=== PATIENT | male | born 1955 | race Asian ===

== ENCOUNTER 2016-05-08 18:35 | Emergency (ER) | payer BC, OTHER ==
[~2016-05-08] VITALS: Ht 177.8 cm; Wt 94.3 kg
[~2016-05-08 18:35] MED LIST: LISI10TA5 PO
[2016-05-08 19:05] VITALS: BP 143/68
== END 2016-05-08 20:18 | disposition home or self-care (01) ==
LOC: ER 18:38
DX: K04.7 Periapical abscess without sinus (principal); I10 Essential (primary) hypertension; I25.10 Atherosclerotic heart disease of native coronary artery without angina pectoris
CPT/HCPCS: 99283; A4606; Z7610

== ENCOUNTER 2016-09-15 14:21 | Inpatient (IN) | payer BC, OTHER ==
[~2016-09-15] VITALS: Ht 172.7 cm; Wt 120.2 kg
[2016-09-15] MEDS ORDERED: ASPIRIN 81 MG TAB.CHEW ONE (14:40)
[2016-09-15] MEDS ORDERED: METOPROLOL TARTRATE 50 MG TABLET ONE (14:40)
[2016-09-15] MEDS ORDERED: NITROGLYCERIN PACKET 1 GM PACKET ONE (14:41)
[2016-09-15 15:00] LABS: BASOPHILS % (AUTO) 0.4 % (0.0-2.0); EOSINOPHILS # (AUTO) 0.4 /CMM (0.0-0.7); EOSINOPHILS % (AUTO) 4.5 % (0.0-6.0); HEMATOCRIT 50 % (39-51); HEMOGLOBIN 16.3 g/dL (13.5-17.5); LYMPHOCYTES # (AUTO) 1.7 /CMM (0.8-4.8); LYMPHOCYTES % (AUTO) 20.5 % (20.0-44.0); MEAN CORPUSCULAR HEMOGLOBIN 29 PG (26.0-33.0); MEAN CORPUSCULAR HGB CONC 33 g/dl (31.0-36.0); MEAN CORPUSCULAR VOLUME 89 fL (80-96); MONOCYTES # (AUTO) 0.6 /CMM (0.1-1.30); MONOCYTES % (AUTO) 6.9 % (2.0-12.0); NEUTROPHILS # (AUTO) 5.8 /CMM (1.8-8.9); NEUTROPHILS % (AUTO) 67.7 % (43.0-81.0); PLATELET COUNT (AUTO) 256 /CMM (150-450); RDW COEFFICIENT OF VARIATION 14.5 (11.5-15.0); RED BLOOD CELL COUNT(AUTO) 5.65 MIL/uL (4.5-6.0); WHITE BLOOD COUNT (AUTO) 8.5 K/uL (4.3-11.0)
[2016-09-15] MEDS ORDERED: METOPROLOL TARTRATE 25 MG TABLET PO ONE (15:00)
[2016-09-15] MEDS ORDERED: NITROGLYCERIN PACKET 1 GM PACKET TD ONE ×2 (15:00→15:30)
[2016-09-15] MEDS ORDERED: ASPIRIN 81 MG TAB.CHEW PO ONE (15:00)
[2016-09-15 15:10] LABS: CALCIUM, SERUM 8.2 mg/dL (8.5-10.1); CREATININE 1.2 mg/dL (0.6-1.3); POTASSIUM 3.8 mmol/L (3.5-5.1)
[2016-09-15] MEDS ORDERED: LOSA50TA21 PO (15:11)
[2016-09-15 15:13] LABS: INR 0.96 (0.87-1.13)
[2016-09-15 15:15] LABS: ALBUMIN 3.2 g/dL (3.4-5.0); BILIRUBIN,DIRECT 0.2 mg/dL (0.0-0.2); TOTAL PROTEIN, SERUM 6.6 g/dL (6.4-8.2)
[2016-09-15 15:17] LABS: TROPONIN I 0.061 ng/mL (0.00-0.056)
[2016-09-15] MEDS ORDERED: ASPIRIN 325 MG TABLET PO ONE (15:30)
[2016-09-15] MEDS ORDERED: ASPIRIN 325 MG TABLET ONE (15:34)
[2016-09-15] MEDS ORDERED: CLONIDINE HCL 0.1 MG TABLET PO PRN (18:30)
[2016-09-15] MEDS ORDERED: ONDANSETRON HCL/PF 4 MG/2 ML VIAL IVP PRN (19:30)
[2016-09-15] MEDS ORDERED: MORPHINE SULFATE INJ 2 MG/ML DISP.SYRIN IV PRN (19:30)
[2016-09-15] MEDS ORDERED: ACETAMINOPHEN 325 MG TABLET PO PRN (19:30)
[2016-09-15 20:00] VITALS: BP 166/98
[2016-09-15] MEDS: METOPROLOL TARTRATE 50 MG TABLET PO SCH (21:00)
[2016-09-15] MEDS ORDERED: ENOXAPARIN SODIUM 40 MG/0.4 ML DISP.SYRIN SQ SCH (21:00)
[2016-09-15] MEDS ORDERED: IV SET PRIMARY PUMP SET 1 EA INFUS.SET MC ONE (22:45)
[2016-09-15] MEDS: NITROGLYCERIN 30 GM TUBE TP SCH (23:55)
[2016-09-16] VITALS: BP 155/88
[2016-09-16] MEDS ORDERED: IV NS 0.9% 1,000 ML IV PRN
[2016-09-16 00:25] VITALS: BP 155/88
[2016-09-16 04:00] VITALS: BP 143/76
[2016-09-16] MEDS: NITROGLYCERIN 30 GM TUBE TP SCH ×3 (06:18→09:00)
[2016-09-16] MEDS ORDERED: ATORVASTATIN 40 MG TABLET PO SCH (06:30)
[2016-09-16 07:19] VITALS: BP 146/69
[2016-09-16] MEDS ORDERED: PANTOPRAZOLE 40 MG TABLET.DR PO SCH (07:30)
[2016-09-16 07:40] LABS: BASOPHILS % (AUTO) 0.5 % (0.0-2.0); EOSINOPHILS # (AUTO) 0.4 /CMM (0.0-0.7); EOSINOPHILS % (AUTO) 3.4 % (0.0-6.0); HEMATOCRIT 43 % (39-51); HEMOGLOBIN 14.6 g/dL (13.5-17.5); LYMPHOCYTES # (AUTO) 1.6 /CMM (0.8-4.8); LYMPHOCYTES % (AUTO) 15.2 % (20.0-44.0); MEAN CORPUSCULAR HEMOGLOBIN 30 PG (26.0-33.0); MEAN CORPUSCULAR HGB CONC 34 g/dl (31.0-36.0); MEAN CORPUSCULAR VOLUME 89 fL (80-96); MONOCYTES # (AUTO) 0.6 /CMM (0.1-1.30); MONOCYTES % (AUTO) 5.3 % (2.0-12.0); NEUTROPHILS % (AUTO) 75.6 % (43.0-81.0); PLATELET COUNT (AUTO) 231 /CMM (150-450); RDW COEFFICIENT OF VARIATION 15.2 (11.5-15.0); WHITE BLOOD COUNT (AUTO) 10.6 K/uL (4.3-11.0)
[2016-09-16 08:00] VITALS: BP 146/69
[2016-09-16 08:02] LABS: CALCIUM, SERUM 8.2 mg/dL (8.5-10.1); POTASSIUM 4.2 mmol/L (3.5-5.1)
[2016-09-16] MEDS: METOPROLOL TARTRATE 50 MG TABLET PO SCH (08:57)
[2016-09-16 09:00] VITALS: BP 146/69
[2016-09-16] MEDS ORDERED: ASPIRIN EC 81 MG TABLET.DR PO SCH (09:00)
[2016-09-16] MEDS ORDERED: ENOXAPARIN SODIUM 100 MG/ML DISP.SYRIN SQ SCH (09:00)
[2016-09-16] MEDS ORDERED: LOSARTAN POTASSIUM 50 MG TABLET PO SCH (09:00)
== END 2016-09-16 13:00 | disposition short-term general hospital (02) | DRG 281 ==
LOC: ER 14:22 → TELE 16:38
PROVIDERS: ADMIT Legal Medicine; ATTEND Legal Medicine
DX: I21.4 Non-ST elevation (NSTEMI) myocardial infarction (principal); Z68.41 Body mass index [BMI] 40.0-44.9, adult; G47.33 Obstructive sleep apnea (adult) (pediatric); I10 Essential (primary) hypertension; I25.10 Atherosclerotic heart disease of native coronary artery without angina pectoris; Z79.899 Other long term (current) drug therapy; E66.01 Morbid (severe) obesity due to excess calories
CPT/HCPCS: 36415; 70450-TC; 71010-TC; 80048-TC; 80061-TC; 80076-TC; 84484-TC; 85025-TC; 85730-TC; 87081-TC; 93307-TC; 94799-TC; A4606; J1650; J7030; Z7610

== ENCOUNTER 2017-01-23 11:03 | Outpatient (CLI) | payer BC, OTHER ==
[~2017-01-23 11:03] MED LIST changes: -LISI10TA5 PO; +LOSA50TA21 PO
[2017-01-23 11:34] LABS: BASOPHILS # (AUTO) 0.1 /CMM (0.0-0.2); BASOPHILS % (AUTO) 1.2 % (0.0-2.0); EOSINOPHILS # (AUTO) 0.7 /CMM (0.0-0.7); EOSINOPHILS % (AUTO) 9.1 % (0.0-6.0); HEMATOCRIT 48 % (39-51); HEMOGLOBIN 16.1 g/dL (13.5-17.5); LYMPHOCYTES % (AUTO) 25.7 % (20.0-44.0); MEAN CORPUSCULAR HEMOGLOBIN 30 PG (26.0-33.0); MEAN CORPUSCULAR HGB CONC 34 g/dl (31.0-36.0); MEAN CORPUSCULAR VOLUME 90 fL (80-96); MONOCYTES # (AUTO) 0.4 /CMM (0.1-1.30); MONOCYTES % (AUTO) 5.6 % (2.0-12.0); NEUTROPHILS # (AUTO) 4.6 /CMM (1.8-8.9); NEUTROPHILS % (AUTO) 58.4 % (43.0-81.0); PLATELET COUNT (AUTO) 233 /CMM (150-450); RDW COEFFICIENT OF VARIATION 14.5 (11.5-15.0); RED BLOOD CELL COUNT(AUTO) 5.37 MIL/uL (4.5-6.0); WHITE BLOOD COUNT (AUTO) 7.8 K/uL (4.3-11.0)
[2017-01-23 11:55] LABS: APPEARANCE,URINE CLEAR (CLEAR); BILIRUBIN,URINE NEGATIVE (NEGATIVE); BLOOD, URINE NEGATIVE Ery/uL (NEGATIVE); COLOR,URINE YELLOW (YELLOW); KETONES,URINE NEGATIVE (NEGATIVE); LEUKOCYTE ESTERASE ,URINE NEGATIVE (NEGATIVE); NITRITE, URINE NEGATIVE (NEGATIVE); PROTEIN,URINE NEGATIVE (NEGATIVE); UGLUCOSE NEGATIVE (NEGATIVE); UROBILINOGEN,URINE 0.2 EU/dL (0.2)
[2017-01-23 11:59] LABS: ALBUMIN 3.6 g/dL (3.4-5.0); BILIRUBIN,TOTAL 1.6 mg/dL (0.2-1.0); CALCIUM, SERUM 9.1 mg/dL (8.5-10.1); CREATININE 1.2 mg/dL (0.6-1.3); POTASSIUM 4.4 mmol/L (3.5-5.1); TOTAL PROTEIN, SERUM 7.4 g/dL (6.4-8.2)
[2017-01-23 12:14] LABS: FREE T4 (FREE THYROXINE) 1.2 ng/dL (0.76-1.46); PROSTATE SPECIFIC ANTIGEN SCR 3.08 ng/mL (0.00-4.00); THYROID STIMULATING HORMONE 1.789 uIU/mL (0.358-3.74); URIC ACID 7.3 mg/dL (2.6-7.2)
[2017-01-25 14:12] LABS: *TESTOSTERONE, FREE (DIRECT) 7.9 pg/mL (6.6-18.1)
== END 2017-01-23 23:59 | disposition home or self-care (01) ==
LOC: LAB 11:03
PROVIDERS: ATTEND Legal Medicine
DX: Z00.01 Encounter for general adult medical examination with abnormal findings (principal); I25.10 Atherosclerotic heart disease of native coronary artery without angina pectoris; I10 Essential (primary) hypertension
CPT/HCPCS: 36415; 80053-TC; 80061-TC; 81000-TC; 82306; 84153-TC; 84402-TC; 84439-TC; 84443-TC; 84550-TC; 85025-TC

== ENCOUNTER 2017-07-06 20:22 | Emergency (ER) | payer BC, OTHER ==
[~2017-07-06] VITALS: Ht 172.7 cm; Wt 111.1 kg
--- NOTE | 2017-07-06 20:40 | NUR ---
TO BED 10 AMBULATORY C/O L SHOULDER PAIN AND HIHGBLOOD PRESSURE. PT AAOX4 NO ACUTE DISTRESSS NOTED. PLACE PT ON CARDIAC MONITORING, CONTINUOUS POX. PENDING ER MD HARRELL.
[2017-07-06] MEDS ORDERED: METOPROLOL TARTRATE 25 MG TABLET PO ONE (21:00)
--- NOTE | 2017-07-06 21:01 | NUR ---
PT FAMILY MEMBERS AT BEDSIDE.
[2017-07-06 21:02] LABS: BASOPHILS # (AUTO) 0.2 /CMM (0.0-0.2); EOSINOPHILS % (AUTO) 4.8 % (0.0-6.0); HEMATOCRIT 46 % (39-51); HEMOGLOBIN 15.9 g/dL (13.5-17.5); LYMPHOCYTES # (AUTO) 1.4 /CMM (0.8-4.8); LYMPHOCYTES % (AUTO) 18.4 % (20.0-44.0); MEAN CORPUSCULAR HGB CONC 34 g/dl (31.0-36.0); MEAN CORPUSCULAR VOLUME 88 fL (80-96); MONOCYTES # (AUTO) 0.5 /CMM (0.1-1.30); MONOCYTES % (AUTO) 6.1 % (2.0-12.0); NEUTROPHILS % (AUTO) 67.7 % (43.0-81.0); PLATELET COUNT (AUTO) 238 /CMM (150-450); RDW COEFFICIENT OF VARIATION 13.6 (11.5-15.0); RED BLOOD CELL COUNT(AUTO) 5.24 MIL/uL (4.5-6.0); WHITE BLOOD COUNT (AUTO) 7.5 K/uL (4.3-11.0)
[2017-07-06] MEDS ORDERED: METOPROLOL TARTRATE 50 MG TABLET ONE (21:04)
--- NOTE | 2017-07-06 21:10 | NUR ---
PT MEDICATED ORDERED.
[2017-07-06 21:12] LABS: CALCIUM, SERUM 8.5 mg/dL (8.5-10.1); CARBON DIOXIDE 30 mmol/L (21-32); CHLORIDE 109 mmol/L (98-107); GLUCOSE 105 mg/dL (74-106); SODIUM SERUM 144 mmol/L (136-145); UREA NITROGEN, BLOOD 19 mg/dL (7-18)
[2017-07-06 21:21] LABS: TROPONIN I < 0.017 ng/mL (0.00-0.056)
[2017-07-06] MEDS ORDERED: VALSARTAN 80 MG TABLET PO ONE (22:00)
[2017-07-06] MEDS ORDERED: VALSARTAN 80 MG TABLET ONE (22:21)
[2017-07-06 22:45] VITALS: BP 179/92
--- NOTE | 2017-07-06 22:47 | NUR ---
Patient discharged to home in stable condition. Written and verbal after care instructions given. Patient verbalizes understanding of instruction. IV removed. Catheter intact and site benign. Pressure and 4x4 applied to site. No bleeding noted.
== END 2017-07-06 22:56 | disposition home or self-care (01) ==
LOC: ER 20:23
DX: I10 Essential (primary) hypertension (principal); Z91.14 Patient's other noncompliance with medication regimen; E78.00 Pure hypercholesterolemia, unspecified
CPT/HCPCS: 36415; 71045; 80048; 84484; 85025; 93005; 99285; A4606; Z7610

== ENCOUNTER 2017-11-16 04:45 | Inpatient (IN) | payer BC, OTHER ==
[~2017-11-16] VITALS: Ht 172.7 cm; Wt 106.6 kg
--- NOTE | 2017-11-16 04:58 | NUR ---
PT AMBULATORY TO ER BED 4. BIBWIFE C/O CHEST PRESSURE X 30 MIN. DENIES SOB. HX STENT. PT PLACED IN GOWN AND ON BENCH WORKER. VSS/RESP EVEN UNLABORED/NAD NOTED/SKIN WARM AND DRY/AFEBRILE/DENIES N-V-D/AOX4. AWAITNG MD HARRELL.
[2017-11-16 05:19] LABS: BASOPHILS % (AUTO) 0.7 % (0.0-2.0); EOSINOPHILS % (AUTO) 5.7 % (0.0-6.0); HEMATOCRIT 44 % (39-51); HEMOGLOBIN 14.3 g/dL (13.5-17.5); LYMPHOCYTES # (AUTO) 1.8 /CMM (0.8-4.8); LYMPHOCYTES % (AUTO) 25.1 % (20.0-44.0); MEAN CORPUSCULAR HEMOGLOBIN 30 PG (26.0-33.0); MEAN CORPUSCULAR HGB CONC 32 g/dl (31.0-36.0); MEAN CORPUSCULAR VOLUME 92 fL (80-96); MONOCYTES # (AUTO) 0.6 /CMM (0.1-1.30); MONOCYTES % (AUTO) 7.9 % (2.0-12.0); NEUTROPHILS # (AUTO) 4.3 /CMM (1.8-8.9); NEUTROPHILS % (AUTO) 60.6 % (43.0-81.0); PLATELET COUNT (AUTO) 248 /CMM (150-450); RDW COEFFICIENT OF VARIATION 13.6 (11.5-15.0); RED BLOOD CELL COUNT(AUTO) 4.82 MIL/uL (4.5-6.0)
--- NOTE | 2017-11-16 05:23 | NUR ---
20G IV TO L AC X 1 ATTEMPT USING ASEPTIC TECH, BLOOD HANDED OVER TO THE LAB AT BEDSIDE. IV FLUSHES EASILY WITH NS, NO S/S INFILTRATION NOTED AT THIS TIME.
[2017-11-16] MEDS ORDERED: hydrALAZINE HCL IV 20 MG VIAL ONE (05:25)
[2017-11-16 05:29] LABS: CALCIUM, SERUM 8.5 mg/dL (8.5-10.1); CARBON DIOXIDE 32 mmol/L (21-32); CHLORIDE 106 mmol/L (98-107); CREATININE 1.3 mg/dL (0.6-1.3); GLUCOSE 108 mg/dL (74-106); POTASSIUM 3.9 mmol/L (3.5-5.1); SODIUM SERUM 140 mmol/L (136-145); UREA NITROGEN, BLOOD 22 mg/dL (7-18)
[2017-11-16] MEDS ORDERED: hydrALAZINE HCL IV 20 MG VIAL IV ONE (05:30)
[2017-11-16 05:37] LABS: INR 0.9 (0.87-1.13); TROPONIN I < 0.017 ng/mL (0.00-0.056)
[2017-11-16 05:42] LABS: B-TYPE NATRIURETIC PEPTIDE 49 PG/ML (0-125)
--- NOTE | 2017-11-16 05:46 | NUR ---
XRAY AT BEDSIDE.
[2017-11-16] MEDS ORDERED: ASPIRIN 81 MG TAB.CHEW PO ONE (06:30)
[2017-11-16] MEDS ORDERED: ASPIRIN 81 MG TAB.CHEW ONE (06:32)
--- NOTE | 2017-11-16 07:09 | NUR ---
ENDORSED TO FLEX CROUCH FOR ELIO.
[2017-11-16] MEDS ORDERED: NIFE90TA2 PO (10:09)
[2017-11-16] MEDS ORDERED: ATOR10TA PO (10:09)
[2017-11-16] MEDS ORDERED: HYDR25TA4 PO (10:09)
[2017-11-16] MEDS ORDERED: CLOP75TA15 PO (10:09)
[2017-11-16] MEDS ORDERED: SIMV10TA6 PO (10:09)
[2017-11-16] MEDS ORDERED: METO-356 PO (10:09)
[2017-11-16] MEDS ORDERED: VALS80TA2 PO (10:09)
--- NOTE | 2017-11-16 10:14 | NUR ---
PANEL SCOURING PADS SUPERVISOR PAGED
--- NOTE | 2017-11-16 11:05 | NUR ---
Report given to FLEX hernandez for telma rm [id number]
--- NOTE | 2017-11-16 11:34 | NUR ---
EMPLOYMENT ADJUDICATOR NOTES RECEIVED PATIENT FROM ER VIA FELICITA GRIFFITH CHEST PAIN BY DR. CASTRO. PATIENT STATED THAT HE WOKE UP FEELING CHEST HEAVINESS AND NUMBNESS TO LEFT ARM. AAO X4, ACCOMPANIED BY . ON RA, NAD, NO SOB, RESPIRATION UNLABORED. TELEMETRY READS SR WITH INVERTED T WAVE HR 70, DENIES ANY CHEST PAIN OR DISCOMFORT AT THIS TIME. IVHL TO LEFT AC G 20 FLUSHES WELL, SITE CLEAR. NO SKIN ISSUES. AMBULATORY. BED LOW LOCKED, SR UP X 2, CALL LIGHT WITHIN REACH. POC DISCUSSED WITH PATIENT, VERBALIZED UNDERSTANDING. ALL ADMIT ORDERS CARRIED OUT. ALL NEEDS ANTICIPATED. WILL CONTINUE TO MONITOR.
[2017-11-16] MEDS ORDERED: HYDROCODONE/APAP 5/325MG 1 EACH TABLET PO PRN (12:00)
[2017-11-16] MEDS ORDERED: ZOLPIDEM TARTRATE 5 MG TABLET PO PRN (12:00)
[2017-11-16] MEDS ORDERED: MAG HYDROX/AL HYDROX/SIMETH 30 ML UDC PO PRN (12:00)
[2017-11-16] MEDS ORDERED: Z GUARD REMEDY 2 OZ OINT TP PRN (12:00)
[2017-11-16] MEDS ORDERED: ACETAMINOPHEN 325 MG TABLET PO PRN (12:00)
[2017-11-16] MEDS ORDERED: ONDANSETRON HCL/PF 4 MG/2 ML VIAL IVP PRN (12:00)
[2017-11-16] MEDS ORDERED: MAGNESIUM HYDROXIDE 30 ML UDC PO PRN (12:00)
[2017-11-16 12:19] VITALS: BP 170/94
--- NOTE | 2017-11-16 12:37 | NUR ---
ASSOCIATE ACCOUNT MANAGER NOTES PT SEEN BY DR. CASTRO EARLIER. CARDIAC CONSULT - DR. MILLER - COVERING FOR DR. BISWAS.
[2017-11-16] MEDS: VALSARTAN 80 MG TABLET PO SCH (12:58)
[2017-11-16] MEDS: HYDROCHLOROTHIAZIDE 25 MG TABLET PO SCH (12:58)
[2017-11-16] MEDS: CLOPIDOGREL BISULFATE 75 MG TABLET PO SCH (12:59)
[2017-11-16] MEDS: METOPROLOL SUCCINATE 25 MG TAB.SR.24H PO SCH (12:59)
[2017-11-16] MEDS ORDERED: IV NS 0.9% 1,000 ML BAG IV ONE (13:00)
[2017-11-16] MEDS ORDERED: IV NS 0.9% 1,000 ML IV PRN (14:00)
[2017-11-16 16:00] VITALS: BP 134/86
--- NOTE | 2017-11-16 18:35 | NUR ---
BILLIARD PARLOR MANAGER NOTE PT TROP WENT UP TO 0.157, PT HAS NO CO CHEST PAIN, SR 68-70 ON TELEMONITOR, DR MARIN NOTIFIED. HE ORDERED TO F/U WITH DR MILLER. DR MILLER NOTIFIED ABOUT LABS, HE ORDERED LOVENOX 1MG/KG BID, ASPIRIN 81 MG DAILY, AND CONTINUE PLAVIX 75 MG. WILL PUT ORDERS AND FOLLOW THROUGH AND ENDORSE TO [facility].
--- NOTE | 2017-11-16 19:30 | NUR ---
RN INITIAL SHIFT NOTES RECEIVED REPORT FROM NURSE TORRES. RECEIVED PATIENT IN BED, AWAKE, ALERT AND ORIENTED X4, ABLE TO VERBALIZE NEEDS. PATIENT DENIES ANY CHEST PAIN AT THIS TIME. BREATHING EVEN AND NONLABORED, TOLERATING ROOM AIR WELL, FREE FROM ANY S/S OF RESPIRATORY DISTRESS. ON TELEMETRY MONITORING, SHOWING SINUS RHYTHM WITH INVERTED TWAVE, HR 75BPM AT THIS TIME. LEFT AC #20G PATENT AND INTACT, FLUSHED WITH NS, FREE FROM ANY S/S OF INFILTRATION OR PHLEBITIS, IV FLUIDS INFUSING ORDERED. PLAN OF CARE DISCUSSED WITH THE PATIENT, WHOM VERBALIZES UNDERSTANDING. CALL LIGHT LEFT WITHIN EASY REACH, BED IN LOWEST AND LOCKED POSITION. WILL CONTINUE TO CLOSELY MONITOR
[2017-11-16 20:00] VITALS: BP 149/83
[2017-11-16] MEDS: ENOXAPARIN SODIUM 100 MG/ML DISP.SYRIN SQ SCH (21:18)
[2017-11-16] MEDS ORDERED: SIMVASTATIN 10 MG TABLET PO SCH (22:00)
[2017-11-16] MEDS ORDERED: ATORVASTATIN 10 MG TABLET PO SCH (22:00)
[2017-11-17] VITALS: BP 140/93
[2017-11-17 04:00] VITALS: BP 139/76
[2017-11-17 06:28] LABS: BASOPHILS % (AUTO) 0.6 % (0.0-2.0); EOSINOPHILS % (AUTO) 3.8 % (0.0-6.0); HEMATOCRIT 46 % (39-51); HEMOGLOBIN 15.1 g/dL (13.5-17.5); LYMPHOCYTES # (AUTO) 1.7 /CMM (0.8-4.8); MEAN CORPUSCULAR HEMOGLOBIN 31 PG (26.0-33.0); MEAN CORPUSCULAR HGB CONC 33 g/dl (31.0-36.0); MEAN CORPUSCULAR VOLUME 93 fL (80-96); MONOCYTES # (AUTO) 0.6 /CMM (0.1-1.30); MONOCYTES % (AUTO) 7.7 % (2.0-12.0); NEUTROPHILS # (AUTO) 5.6 /CMM (1.8-8.9); NEUTROPHILS % (AUTO) 67.9 % (43.0-81.0); PLATELET COUNT (AUTO) 246 /CMM (150-450); RDW COEFFICIENT OF VARIATION 13.7 (11.5-15.0); RED BLOOD CELL COUNT(AUTO) 4.95 MIL/uL (4.5-6.0); WHITE BLOOD COUNT (AUTO) 8.3 K/uL (4.3-11.0)
[2017-11-17 06:51] LABS: CALCIUM, SERUM 8.8 mg/dL (8.5-10.1); CREATININE 1.2 mg/dL (0.6-1.3); PHOSPHORUS 3.6 mg/dL (2.5-4.9); POTASSIUM 3.9 mmol/L (3.5-5.1)
[2017-11-17 06:52] LABS: MAGNESIUM 1.9 mg/dL (1.8-2.4)
[2017-11-17 06:55] LABS: TROPONIN I 0.126 ng/mL (0.00-0.056)
--- NOTE | 2017-11-17 07:00 | NUR ---
RN NOTES RECEIVED PT ON BED, A/Ox4, ON RA , RESPIRATION EVEN AND UNLABORED, ON TELE SR - SB, WITH INVERTED T WAVES, L AC IV SITE G 20 CLEAN, DRY AND INTACT, SR UPx3, CALL LIGHT WITHIN EASY REACH, BED LOCKED AND IN LOWEST POSITION , CONTINUE TO MONITOR .
[2017-11-17 08:00] VITALS: BP 125/81
[2017-11-17] MEDS: NIFEdipine XL (30MG) 30 MG TAB PO SCH (08:18)
[2017-11-17] MEDS: VALSARTAN 80 MG TABLET PO SCH (08:19)
[2017-11-17] MEDS: METOPROLOL SUCCINATE 25 MG TAB.SR.24H PO SCH (08:19)
[2017-11-17] MEDS: CLOPIDOGREL BISULFATE 75 MG TABLET PO SCH (08:20)
[2017-11-17] MEDS: HYDROCHLOROTHIAZIDE 25 MG TABLET PO SCH (08:20)
[2017-11-17] MEDS: ENOXAPARIN SODIUM 100 MG/ML DISP.SYRIN SQ SCH ×2 (08:21→22:03)
[2017-11-17] MEDS ORDERED: VALSARTAN 80 MG TABLET PO SCH (09:00)
[2017-11-17] MEDS ORDERED: CLOPIDOGREL BISULFATE 75 MG TABLET PO SCH (09:00)
[2017-11-17] MEDS ORDERED: HYDROCHLOROTHIAZIDE 25 MG TABLET PO SCH (09:00)
[2017-11-17] MEDS ORDERED: ASPIRIN 81 MG TAB.CHEW PO SCH (09:00)
[2017-11-17] MEDS ORDERED: METOPROLOL SUCCINATE 25 MG TAB.SR.24H PO SCH (09:00)
[2017-11-17 12:00] VITALS: BP 142/86
[2017-11-17 16:00] VITALS: BP 117/71
--- NOTE | 2017-11-17 18:10 | NUR ---
RN NOTES VSS STABLE , SUPPORTIVE FAMILY AT THE BEDSIDE, R HAND IV SITE G 20 CLEAN , DRY AND INTACT, WILL ENDOSE TO DEPUTY DIRECTOR OF PUBLIC WORKS NURSE FOR CONTINUITY OF CARE .
--- NOTE | 2017-11-17 18:30 | NUR ---
RN NOTES DR STEVENS NOTIFED REGARDING EKG RESULTS .
[2017-11-17 20:00] VITALS: BP 140/87
--- NOTE | 2017-11-17 20:00 | NUR ---
RN NOTES RECEIVED PT ON BED, A/Ox4, ON NC 2L O2 WITH SPO2 OF 97% , RESPIRATION EVEN AND UNLABORED, ON TELE SR WITH INVERTED T WAVES, L AC IV SITE G 20 CLEAN, DRY AND INTACT, SR UPx3, CALL LIGHT WITHIN EASY REACH, BED LOCKED AND IN LOWEST POSITION , CONTINUE TO MONITOR .
--- NOTE | 2017-11-17 21:00 | NUR ---
RN NOTES CALLED MD STEVENS TO VERIFY LOVENOX 100MG AT [address] STEVENS SAID ADMINISTER EVENING DOSE BUT HOLD THE MORNING DOSE .
[2017-11-17] MEDS ORDERED: ATORVASTATIN 10 MG TABLET PO SCH (22:00)
[2017-11-18] VITALS: BP 131/82
[2017-11-18 04:00] VITALS: BP 129/77
[2017-11-18 06:27] LABS: BASOPHILS % (AUTO) 0.4 % (0.0-2.0); EOSINOPHILS % (AUTO) 3.6 % (0.0-6.0); HEMATOCRIT 50 % (39-51); HEMOGLOBIN 16.5 g/dL (13.5-17.5); LYMPHOCYTES % (AUTO) 21.3 % (20.0-44.0); MEAN CORPUSCULAR HEMOGLOBIN 31 PG (26.0-33.0); MEAN CORPUSCULAR HGB CONC 33 g/dl (31.0-36.0); MEAN CORPUSCULAR VOLUME 92 fL (80-96); MONOCYTES # (AUTO) 0.8 /CMM (0.1-1.30); MONOCYTES % (AUTO) 8.3 % (2.0-12.0); NEUTROPHILS # (AUTO) 6.4 /CMM (1.8-8.9); NEUTROPHILS % (AUTO) 66.4 % (43.0-81.0); PLATELET COUNT (AUTO) 231 /CMM (150-450); RDW COEFFICIENT OF VARIATION 13.6 (11.5-15.0); WHITE BLOOD COUNT (AUTO) 9.6 K/uL (4.3-11.0)
--- NOTE | 2017-11-18 07:00 | NUR ---
RN NOTES RECEIVED PT ON BED, A/Ox4, ON 2L O2 N/C , RESPIRATION EVEN AND UNLABORED , NO SOB NOTED, ON TELE SR, HR IN 60S', WITH INVERTED T WAVES , L AC IV SITE G 20 CLEAN , DRY AND INTACT, SR UP x2, CALL LIGHT WITHIN EASY REACH, BED LOCKED AND IN LOWEST POSITION , CONTINUE TO MONITOR .
[2017-11-18 07:05] LABS: CARBON DIOXIDE 29 mmol/L (21-32); CHLORIDE 103 mmol/L (98-107); CREATININE 1.1 mg/dL (0.6-1.3); GLUCOSE 93 mg/dL (74-106); POTASSIUM 3.8 mmol/L (3.5-5.1); SODIUM SERUM 140 mmol/L (136-145); UREA NITROGEN, BLOOD 23 mg/dL (7-18)
[2017-11-18 08:00] VITALS: BP 132/85
[2017-11-18] MEDS: VALSARTAN 80 MG TABLET PO SCH (08:23)
[2017-11-18] MEDS: NIFEdipine XL (30MG) 30 MG TAB PO SCH (08:24)
[2017-11-18] MEDS: HYDROCHLOROTHIAZIDE 25 MG TABLET PO SCH (08:24)
[2017-11-18] MEDS: ENOXAPARIN SODIUM 100 MG/ML DISP.SYRIN SQ SCH (08:25)
[2017-11-18] MEDS: METOPROLOL SUCCINATE 25 MG TAB.SR.24H PO SCH (08:25)
[2017-11-18] MEDS: CLOPIDOGREL BISULFATE 75 MG TABLET PO SCH (08:25)
[2017-11-18 08:49] LABS: TROPONIN I < 0.017 ng/mL (0.00-0.056)
[2017-11-18] MEDS ORDERED: ASPIRIN 325 MG TABLET PO SCH (09:00)
[2017-11-18 12:00] VITALS: BP 130/84
--- NOTE | 2017-11-18 12:30 | NUR ---
RN NOTES REPORT GIVEN TO MARLEN MCCORD AT [facility], VSS STABLE , PT LEFT THE FLOOR TO MAIN ENTRANCE ACCOMPANIED BY EMT PERSONEAL IN STABLE CONDITION TO [facility] . FAMILY NOTIFED REGARDING PT BEING TRANSFERRED TO [facility] .
== END 2017-11-18 14:49 | disposition home or self-care (01) | DRG 280 ==
LOC: ER 04:56 → TELE1 10:19
PROVIDERS: ADMIT Family Medicine; ATTEND Family Medicine
DX: I21.4 Non-ST elevation (NSTEMI) myocardial infarction (principal); N17.0 Acute kidney failure with tubular necrosis; E44.1 Mild protein-calorie malnutrition; I25.10 Atherosclerotic heart disease of native coronary artery without angina pectoris; E78.5 Hyperlipidemia, unspecified; I10 Essential (primary) hypertension; Z95.5 Presence of coronary angioplasty implant and graft; Z79.899 Other long term (current) drug therapy; I25.2 Old myocardial infarction; Z68.37 Body mass index [BMI] 37.0-37.9, adult; E66.9 Obesity, unspecified; I25.5 Ischemic cardiomyopathy; Z82.49 Family history of ischemic heart disease and other diseases of the circulatory system
CPT/HCPCS: 36415; 71045-TC; 80048-TC; 80061-TC; 83735-TC; 83880; 84100-TC; 84484-TC; 85025-TC; 85730-TC; 87081-TC; 93307-TC; A4606; J0360; J1650; J7030; Z7610

== ENCOUNTER 2018-03-02 09:39 | Outpatient (CLI) | payer BC, OTHER ==
[~2018-03-02 09:39] MED LIST changes: +ATOR10TA PO; +CLOP75TA15 PO; +HYDR25TA4 PO; -LOSA50TA21 PO; +METO-356 PO; +NIFE90TA2 PO; +SIMV10TA6 PO; +VALS80TA2 PO
[2018-03-02 10:46] LABS: CHOLESTEROL 160 mg/dL (<200); HDL CHOLESTEROL 42 mg/dL (40-60); LDL 110 mg/dL (0-99); TRIGLYCERIDES 93 mg/dL (30-150)
== END 2018-03-02 23:59 | disposition home or self-care (01) ==
LOC: LAB 09:39
PROVIDERS: ATTEND Internal Medicine Interventional Cardiology
DX: E78.5 Hyperlipidemia, unspecified (principal); I10 Essential (primary) hypertension
CPT/HCPCS: 36415; 80061-TC

== ENCOUNTER 2018-03-30 18:08 | Emergency (ER) | payer BC, OTHER ==
[~2018-03-30] VITALS: Ht 172.7 cm; Wt 111.1 kg
[2018-03-30] MEDS ORDERED: IV NS 0.9% 1,000 ML BAG IV ONE ×2 (18:30→20:00)
[2018-03-30] MEDS ORDERED: ONDANSETRON HCL/PF 4 MG/2 ML VIAL IVP ONE (18:30)
[2018-03-30] MEDS ORDERED: ONDANSETRON HCL/PF 4 MG/2 ML VIAL ONE (18:40)
[2018-03-30 18:43] LABS: BASOPHILS % (AUTO) 0.4 % (0.0-2.0); EOSINOPHILS % (AUTO) 1.5 % (0.0-6.0); HEMATOCRIT 46 % (39-51); HEMOGLOBIN 15.3 g/dL (13.5-17.5); LYMPHOCYTES # (AUTO) 0.5 /CMM (0.8-4.8); LYMPHOCYTES % (AUTO) 4.4 % (20.0-44.0); MEAN CORPUSCULAR HGB CONC 33 g/dl (31.0-36.0); MEAN CORPUSCULAR VOLUME 92 fL (80-96); MONOCYTES # (AUTO) 0.6 /CMM (0.1-1.30); MONOCYTES % (AUTO) 5.2 % (2.0-12.0); NEUTROPHILS % (AUTO) 88.5 % (43.0-81.0); PLATELET COUNT (AUTO) 255 /CMM (150-450); RED BLOOD CELL COUNT(AUTO) 5.02 MIL/uL (4.5-6.0); WHITE BLOOD COUNT (AUTO) 11.3 K/uL (4.3-11.0)
--- NOTE | 2018-03-30 18:47 | NUR ---
BIB FAMILY C/O N/V WITH SOFT STOOL THIS AM. NEAR SYNCOPAL EPISODE PER . ALERT AND ORIENTED X 4. ON ROOM AIR, BREATHING EVENLY AND UNLABORED. DENIES ANY PAIN AT THIS TIME. HOOKED ON THE MONITOR. KEPT COMFROTABLE. DR. AHUMADA AT BEDSIDE FOR EVAL. IV ACCESS INITIATED. WILL CONTINUE TO MONITOR ACCORDINGLY.
[2018-03-30 18:53] LABS: CALCIUM, SERUM 8.7 mg/dL (8.5-10.1); CREATININE 1.5 mg/dL (0.6-1.3); POTASSIUM 4.2 mmol/L (3.5-5.1)
[2018-03-30 18:58] LABS: ALBUMIN 3.6 g/dL (3.4-5.0); BILIRUBIN,DIRECT 0.2 mg/dL (0.0-0.2); BILIRUBIN,TOTAL 0.9 mg/dL (0.2-1.0); TOTAL PROTEIN, SERUM 7.4 g/dL (6.4-8.2)
[2018-03-30] MEDS ORDERED: CT SWABBABLE VALVE TRANS SET 1 EA INFUS.SET MC ONE (19:23)
[2018-03-30] MEDS ORDERED: IOHEXOL-300 100 ML VIAL IV ONE (19:23)
[2018-03-30] MEDS ORDERED: IV NS 0.9% 250 ML IV ONE (19:23)
--- NOTE | 2018-03-30 19:23 | NUR ---
ENDORSED TO ALEJANDRO HARDY FOR ELIO.
--- NOTE | 2018-03-30 19:26 | NUR ---
ASSUMED CARE OF PT. PT IS OVER IN CT. PT'S SON IS AT THE BEDSIDE.
--- NOTE | 2018-03-30 19:48 | NUR ---
PT RETURNED FROM CT.
--- NOTE | 2018-03-30 20:04 | NUR ---
DR AHUMADA IS AT THE BEDSIDE.
--- NOTE | 2018-03-30 20:58 | NUR ---
IV removed. Catheter intact and site benign. Pressure and 4x4 applied to site. No bleeding noted.Patient discharged to home in stable condition. Written and verbal after care instructions given. Patient verbalizes understanding of instruction AND RX. PT'S IS DRIVING PT HOME. VSS. PT AMBULATED TO THE BATHROOM WITH A STEADY GAIT.
[2018-03-30 21:00] VITALS: BP 106/67
== END 2018-03-30 21:01 | disposition home or self-care (01) ==
LOC: ER 18:11
DX: K80.20 Calculus of gallbladder without cholecystitis without obstruction (principal); R11.2 Nausea with vomiting, unspecified; I10 Essential (primary) hypertension; Z79.899 Other long term (current) drug therapy; Z95.818 Presence of other cardiac implants and grafts
CPT/HCPCS: 36415; 71045; 74177; 80048; 80076; 83690; 85025; 93005; 96361; 96374; 99284; A4606; J2405; J7030 ×2; J7050; Q9967; Z7610

== ENCOUNTER 2018-12-30 09:36 | Emergency (ER) | payer BC, OTHER ==
[~2018-12-30] VITALS: Ht 170.2 cm; Wt 115.7 kg
[~2018-12-30 09:36] MED LIST changes: -METO-356 PO; +METO25TA4 PO; -SIMV10TA6 PO; +SIMV10TA98 PO
--- NOTE | 2018-12-30 09:50 | NUR ---
patient came in to the ER Eric, c/o left foot pain 9/10 ps, denies injury or trauma. On room air, breathing evenly and unlabored, kept comfortable, will continue to monitor accordingly.
[2018-12-30 11:13] VITALS: BP 125/71
--- NOTE | 2018-12-30 11:13 | NUR ---
Patient discharged to home in stable condition. Written and verbal after care instructions given. Patient verbalizes understanding of instruction.
== END 2018-12-30 11:13 | disposition home or self-care (01) ==
LOC: ER 09:47
DX: M77.9 Enthesopathy, unspecified (principal); I10 Essential (primary) hypertension; Z79.899 Other long term (current) drug therapy

== ENCOUNTER 2021-04-30 09:30 | Outpatient (CLI) | payer BC ==
[2021-04-30 11:02] LABS: FREE T4 (FREE THYROXINE) 0.97 ng/dL (0.76-1.46); PROSTATE SPECIFIC ANTIGEN SCR 3.49 ng/mL (0.00-4.00); THYROID STIMULATING HORMONE 2.308 uIU/mL (0.358-3.74); URIC ACID 7.8 mg/dL (2.6-7.2)
[2021-04-30 11:18] LABS: BILIRUBIN,URINE NEGATIVE (NEGATIVE); COLOR,URINE YELLOW (YELLOW); LEUKOCYTE ESTERASE ,URINE NEGATIVE (NEGATIVE); NITRITE, URINE NEGATIVE (NEGATIVE); PROTEIN,URINE NEGATIVE (NEGATIVE); UGLUCOSE NEGATIVE (NEGATIVE); UROBILINOGEN,URINE 0.2 EU/dL (0.2)
[2021-04-30 11:19] LABS: ALBUMIN 3.5 g/dL (3.4-5.0); BILIRUBIN,TOTAL 0.6 mg/dL (0.2-1.0); CALCIUM, SERUM 8.6 mg/dL (8.5-10.1); CREATININE 1.2 mg/dL (0.6-1.3); POTASSIUM 4.2 mmol/L (3.5-5.1); TOTAL PROTEIN, SERUM 7.3 g/dL (6.4-8.2)
[2021-04-30 11:53] LABS: BASOPHILS # (AUTO) 0.1 K/uL (0.0-0.2); BASOPHILS % (AUTO) 0.9 % (0.0-2.0); EOSINOPHILS % (AUTO) 7.6 % (0.0-6.0); HEMATOCRIT 44 % (39-51); HEMOGLOBIN 14.8 g/dL (13.5-17.5); LYMPHOCYTES # (AUTO) 1.8 K/uL (0.8-4.8); LYMPHOCYTES % (AUTO) 24.2 % (20.0-44.0); MEAN CORPUSCULAR HGB CONC 34 g/dl (31.0-36.0); MEAN CORPUSCULAR VOLUME 92 fL (80-96); MONOCYTES # (AUTO) 0.5 K/uL (0.1-1.30); MONOCYTES % (AUTO) 7.3 % (2.0-12.0); NEUTROPHILS # (AUTO) 4.5 K/uL (1.8-8.9); PLATELET COUNT (AUTO) 282 K/uL (150-450); RED BLOOD CELL COUNT(AUTO) 4.74 MIL/uL (4.5-6.0); WHITE BLOOD COUNT (AUTO) 7.5 K/uL (4.3-11.0)
== END 2021-04-30 23:59 | disposition home or self-care (01) ==
LOC: LAB 09:30
PROVIDERS: ATTEND Legal Medicine
DX: I12.9 Hypertensive chronic kidney disease with stage 1 through stage 4 chronic kidney disease, or unspecified chronic kidney disease (principal); E11.22 Type 2 diabetes mellitus with diabetic chronic kidney disease; N18.9 Chronic kidney disease, unspecified; E78.5 Hyperlipidemia, unspecified; I25.10 Atherosclerotic heart disease of native coronary artery without angina pectoris; N40.0 Benign prostatic hyperplasia without lower urinary tract symptoms; D64.9 Anemia, unspecified; E55.9 Vitamin D deficiency, unspecified; Z00.00 Encounter for general adult medical examination without abnormal findings
CPT/HCPCS: 36415; 80053-TC; 80061-TC; 82306; 82550-TC; 82607-TC; 82728-TC; 83540-TC; 84153-TC; 84402; 84403; 84439-TC; 84443-TC; 84550-TC; 85025-TC

== ENCOUNTER 2021-07-11 09:50 | Outpatient (CLI) | payer BC ==
[2021-07-11 10:49] LABS: CHOLESTEROL 135 mg/dL (<200); HDL CHOLESTEROL 47 mg/dL (40-60); LDL 81 mg/dL (0-99); TRIGLYCERIDES 83 mg/dL (30-150)
== END 2021-07-11 23:59 | disposition home or self-care (01) ==
LOC: LAB 09:50
PROVIDERS: ATTEND Internal Medicine Interventional Cardiology
DX: E78.5 Hyperlipidemia, unspecified (principal)
CPT/HCPCS: 36415; 80061-TC

== ENCOUNTER 2022-01-30 11:28 | Outpatient (CLI) | payer BC ==
[2022-01-30 12:29] LABS: CHOLESTEROL 145 mg/dL (<200); HDL CHOLESTEROL 51 mg/dL (40-60); LDL 92 mg/dL (0-99); TRIGLYCERIDES 81 mg/dL (30-150)
== END 2022-01-30 23:59 | disposition home or self-care (01) ==
LOC: LAB 11:28
PROVIDERS: ATTEND Internal Medicine Interventional Cardiology
DX: E78.5 Hyperlipidemia, unspecified (principal)
CPT/HCPCS: 36415; 80061-TC

== ENCOUNTER 2022-04-15 13:11 | Emergency (ER) | payer BC ==
[~2022-04-15] VITALS: Ht 170.2 cm; Wt 117.9 kg
--- NOTE | 2022-04-15 13:35 | NUR ---
LLE SWELLING NOTED YESTERDAY. SENT TO R/O DVT
[2022-04-15 14:28] LABS: BASOPHILS % (AUTO) 0.6 % (0.0-2.0); EOSINOPHILS % (AUTO) 6.3 % (0.0-6.0); HEMATOCRIT 42 % (39-51); HEMOGLOBIN 13.8 g/dL (13.5-17.5); LYMPHOCYTES # (AUTO) 1.5 K/uL (0.8-4.8); LYMPHOCYTES % (AUTO) 20.7 % (20.0-44.0); MEAN CORPUSCULAR HGB CONC 33 g/dl (31.0-36.0); MEAN CORPUSCULAR VOLUME 93 fL (80-96); MONOCYTES # (AUTO) 0.6 K/uL (0.1-1.30); MONOCYTES % (AUTO) 8.2 % (2.0-12.0); NEUTROPHILS # (AUTO) 4.7 K/uL (1.8-8.9); NEUTROPHILS % (AUTO) 64.2 % (43.0-81.0); PLATELET COUNT (AUTO) 285 K/uL (150-450); RED BLOOD CELL COUNT(AUTO) 4.54 MIL/uL (4.5-6.0); WHITE BLOOD COUNT (AUTO) 7.3 K/uL (4.3-11.0)
[2022-04-15] MEDS ORDERED: [UNRECOGNIZED DRUG - REMARK] (15:32)
[2022-04-15] MEDS ORDERED: ASCO-340 PO (15:32)
[2022-04-15] MEDS ORDERED: CHOL100043 PO (15:32)
[2022-04-15] MEDS ORDERED: ASCO-352 PO (15:32)
[2022-04-15] MEDS ORDERED: RANO500T6 PO (15:32)
[2022-04-15] MEDS ORDERED: CHRO400T8 PO (15:32)
[2022-04-15] MEDS ORDERED: GINK120C PO (15:32)
[2022-04-15] MEDS ORDERED: ASPI-992 PO (15:32)
[2022-04-15 15:37] LABS: ALANINE AMINOTRANSFERASE 38 U/L (12-78); ALBUMIN 3.3 g/dL (3.4-5.0); ALKALINE PHOSPHATASE 63 U/L (46-116); ASPARTATE AMINOTRANSFERASE 18 U/L (15-37); BILIRUBIN,DIRECT 0.2 mg/dL (0.0-0.2); BILIRUBIN,TOTAL 0.7 mg/dL (0.2-1.0); CALCIUM, SERUM 8.4 mg/dL (8.5-10.1); CARBON DIOXIDE 26 mmol/L (21-32); CHLORIDE 109 mmol/L (98-107); CREATININE 1.3 mg/dL (0.6-1.3); GLUCOSE 111 mg/dL (74-106); POTASSIUM 4.2 mmol/L (3.5-5.1); SODIUM SERUM 143 mmol/L (136-145); TOTAL PROTEIN, SERUM 6.6 g/dL (6.4-8.2); UREA NITROGEN, BLOOD 22 mg/dL (7-18)
[2022-04-15 17:41] VITALS: BP 144/84
--- NOTE | 2022-04-15 17:41 | NUR ---
Patient discharged to home in stable condition. Written and verbal after care instructions given. Patient verbalizes understanding of instruction.
== END 2022-04-15 17:41 | disposition home or self-care (01) ==
LOC: ER 13:16
DX: R60.0 Localized edema (principal); I10 Essential (primary) hypertension; E78.5 Hyperlipidemia, unspecified; Z79.899 Other long term (current) drug therapy
CPT/HCPCS: 36415; 71045-TC; 80048-TC; 80076-TC; 83880; 84484-TC; 85025-TC; 93970-TC

== ENCOUNTER 2022-07-11 08:41 | Outpatient (CLI) | payer BC ==
[~2022-07-11 08:41] MED LIST changes: +ASCO-340 PO; +ASCO-352 PO; +ASPI-992 PO; -ATOR10TA PO; +CHOL100043 PO; +CHRO400T8 PO; -CLOP75TA15 PO; +GINK120C PO; -HYDR25TA4 PO; +RANO500T6 PO; +[UNRECOGNIZED DRUG - REMARK]
[2022-07-11 09:57] LABS: BASOPHILS # (AUTO) 0.1 K/uL (0.0-0.2); BASOPHILS % (AUTO) 0.9 % (0.0-2.0); EOSINOPHILS % (AUTO) 5.6 % (0.0-6.0); HEMATOCRIT 42 % (39-51); HEMOGLOBIN 14.1 g/dL (13.5-17.5); LYMPHOCYTES # (AUTO) 1.7 K/uL (0.8-4.8); LYMPHOCYTES % (AUTO) 24.4 % (20.0-44.0); MEAN CORPUSCULAR HGB CONC 33 g/dl (31.0-36.0); MEAN CORPUSCULAR VOLUME 91 fL (80-96); MONOCYTES # (AUTO) 0.6 K/uL (0.1-1.30); MONOCYTES % (AUTO) 8.1 % (2.0-12.0); NEUTROPHILS # (AUTO) 4.2 K/uL (1.8-8.9); PLATELET COUNT (AUTO) 292 K/uL (150-450); RED BLOOD CELL COUNT(AUTO) 4.65 MIL/uL (4.5-6.0); WHITE BLOOD COUNT (AUTO) 6.9 K/uL (4.3-11.0)
[2022-07-11 11:10] LABS: ALBUMIN 3.4 g/dL (3.4-5.0); BILIRUBIN,TOTAL 0.3 mg/dL (0.2-1.0); CALCIUM, SERUM 8.9 mg/dL (8.5-10.1); CREATININE 1.4 mg/dL (0.6-1.3); POTASSIUM 4.3 mmol/L (3.5-5.1); TOTAL PROTEIN, SERUM 6.8 g/dL (6.4-8.2)
[2022-07-11 11:19] LABS: THYROID STIMULATING HORMONE 2.646 uIU/mL (0.358-3.74)
== END 2022-07-11 23:59 | disposition home or self-care (01) ==
LOC: LAB 08:41
PROVIDERS: ATTEND Internal Medicine Interventional Cardiology
DX: I10 Essential (primary) hypertension (principal); E03.9 Hypothyroidism, unspecified; R53.83 Other fatigue; E78.5 Hyperlipidemia, unspecified
CPT/HCPCS: 36415; 80053-TC; 80061-TC; 84443-TC; 85025-TC

== ENCOUNTER 2022-07-30 08:40 | Outpatient (CLI) | payer BC | END 2022-07-30 23:59 | disposition home or self-care (01) | LOC: LAB 08:40 | PROVIDERS: ATTEND Internal Medicine Interventional Cardiology | DX: E11.9 Type 2 diabetes mellitus without complications (principal) | CPT/HCPCS: 36415 ==

== ENCOUNTER 2023-04-03 12:21 | Emergency (ER) | payer BC ==
[~2023-04-03] VITALS: Ht 170.2 cm; Wt 97.5 kg
[2023-04-03] MEDS ORDERED: CYCL5TAB PO (14:07)
[2023-04-03] MEDS ORDERED: LIDO30AD10 TP (14:07)
[2023-04-03] MEDS ORDERED: NAPR-1164 PO (14:07)
[2023-04-03 17:59] VITALS: BP 133/76; TEMP 97.8; O2SAT 99
== END 2023-04-03 17:59 | disposition home or self-care (01) ==
LOC: ER 12:21
DX: S13.9XXA Sprain of joints and ligaments of unspecified parts of neck, initial encounter (principal); I10 Essential (primary) hypertension; V49.9XXA Car occupant (driver) (passenger) injured in unspecified traffic accident, initial encounter; Y93.89 Activity, other specified; Y92.89 Other specified places as the place of occurrence of the external cause; Y99.8 Other external cause status

== ENCOUNTER → 2023-04-16 | Day surgery (SDC) | payer BC ==
[~2023-04-16] MED LIST changes: +CYCL5TAB PO; +LIDO30AD10 TP; +NAPR-1164 PO
[2023-04-16 11:06] LABS: CHOLESTEROL 162 mg/dL (<200); HDL CHOLESTEROL 53 mg/dL (40-60); LDL 99 mg/dL (0-99); TRIGLYCERIDES 42 mg/dL (30-150)
== END | disposition home or self-care (01) ==
LOC: LAB 08:59
PROVIDERS: ATTEND Internal Medicine Interventional Cardiology
DX: E78.5 Hyperlipidemia, unspecified (principal)
CPT/HCPCS: 36415; 80061-TC

== ENCOUNTER 2024-05-03 12:10 | Emergency (ER) | payer BC ==
[~2024-05-03] VITALS: Ht 175.3 cm; Wt 98.9 kg
[2024-05-03] MEDS: IV NS 0.9% 1,000 ML BAG IV ONE (12:53)
[2024-05-03 13:01] LABS: BASOPHILS % (AUTO) 0.3 % (0.0-2.0); EOSINOPHILS # (AUTO) 0.1 K/uL (0.0-0.7); EOSINOPHILS % (AUTO) 0.7 % (0.0-6.0); HEMATOCRIT 49 % (39-51); HEMOGLOBIN 16.2 g/dL (13.5-17.5); LYMPHOCYTES # (AUTO) 0.8 K/uL (0.8-4.8); LYMPHOCYTES % (AUTO) 5.7 % (20.0-44.0); MEAN CORPUSCULAR HEMOGLOBIN 31 PG (26.0-33.0); MEAN CORPUSCULAR HGB CONC 33 g/dl (31.0-36.0); MEAN CORPUSCULAR VOLUME 93 fL (80-96); MONOCYTES # (AUTO) 0.7 K/uL (0.1-1.30); MONOCYTES % (AUTO) 4.8 % (2.0-12.0); NEUTROPHILS % (AUTO) 88.5 % (43.0-81.0); PLATELET COUNT (AUTO) 267 K/uL (150-450); RED BLOOD CELL COUNT(AUTO) 5.25 MIL/uL (4.5-6.0); WHITE BLOOD COUNT (AUTO) 13.6 K/uL (4.3-11.0)
[2024-05-03 13:13] LABS: CALCIUM, SERUM 8.8 mg/dL (8.5-10.1); CARBON DIOXIDE 28 mmol/L (21-32); CHLORIDE 106 mmol/L (98-107); CREATININE 1.3 mg/dL (0.6-1.3); GLUCOSE 108 mg/dL (74-106); POTASSIUM 4.4 mmol/L (3.5-5.1); SODIUM SERUM 139 mmol/L (136-145); UREA NITROGEN, BLOOD 22 mg/dL (7-18)
[2024-05-03 15:27] VITALS: BP 118/71; TEMP 98.1; O2SAT 97
== END 2024-05-03 15:30 | disposition home or self-care (01) ==
LOC: ER 12:15
DX: S00.83XA Contusion of other part of head, initial encounter (principal); R55 Syncope and collapse; I10 Essential (primary) hypertension; Z79.82 Long term (current) use of aspirin; Z79.899 Other long term (current) drug therapy; W18.30XA Fall on same level, unspecified, initial encounter; Y93.89 Activity, other specified; Y92.89 Other specified places as the place of occurrence of the external cause; Y99.8 Other external cause status
CPT/HCPCS: 99285; 96360; 70450; 71045; 93005; 85025; 80048; 36415; 84484; J7030; A6403